=== PATIENT | male | born 1975 | race Two or more races ===

== ENCOUNTER 2019-09-11 14:04 | Emergency (ER) | payer SELFPAY ==
[~2019-09-11] VITALS: Ht 182.9 cm; Wt 79.4 kg
[2019-09-11 14:10] VITALS: BP 132/70
--- NOTE | 2019-09-11 14:31 | NUR ---
ED Nurse Note: Pt. aaox4. ambualtory. Brought in by for medical clearance; c/o blood in urine and feeling dehydrated. denies any pain
[2019-09-11 15:03] LABS: APPEARANCE,URINE CLEAR; BILIRUBIN, URINE NEGATIVE (NEGATIVE); GLUCOSE, URINE (UA) NEGATIVE (NEGATIVE); KETONES,URINE NEGATIVE (NEGATIVE); LEUKOCYTE ESTERASE ,URINE NEGATIVE (NEGATIVE); NITRITE,URINE NEGATIVE (NEGATIVE); PH,URINE 5 (4.5-8.0); PROTEIN,URINE NEGATIVE (NEGATIVE); UROBILINOGEN,URINE 1 MG/DL (0.0-1.0)
[2019-09-11 15:05] LABS: COLOR,URINE YELLOW
--- NOTE | 2019-09-11 15:06 | Emergency Room Report ---
History of Present Illness General Chief Complaint: Medical Clearance Source: Patient Present Illness HPI 44-year-old male presents to the emergency department for medical clearance for incarceration complaining of hematuria x2 days. Patient reports history of kidney stones and is concerned that he may develop 1 while in care home. Patient states that typically hematuria precedes development of stones. He denies pain at this time denies nausea, vomiting, fevers, chills, dysuria, pyuria, urinary frequency or urgency. He denies chest pain, palpitations, headache, neck pain/ stiffness, photophobia, abdominal pain/tenderness, open wounds or bleeding. No other aggravating or relieving factors at this time. Denies dark colored urine or excessive physical activity. Patient is only complaining of hematuria. Allergies: Coded Allergies: No Known Allergies (Unverified , 09/11/19) Patient History Past Medical History: see triage record Past Surgical History: none Pertinent Family History: none Reviewed Nursing Documentation: PMH: Agreed; PSxH: Agreed Nursing Documentation-PMH Past Medical History: No History, Except For Review of Systems All Other Systems: negative except mentioned in HPI Physical Exam Vital Signs Date Time Temp Pulse Resp B/P (MAP) Pulse Ox O2 Delivery O2 Flow Rate FiO2 09/11/19 14:10 97.3 103 18 132/70 (90) 99 Room Air Sp02 EP Interpretation: reviewed, normal General Appearance: no apparent distress, alert, GCS 15, non-toxic Head: normocephalic, atraumatic Eyes: bilateral eye normal inspection, bilateral eye PERRL ENT: hearing grossly normal, normal voice Neck: full range of motion Respiratory: lungs clear, normal breath sounds, no respiratory distress, no wheezing, speaking full sentences Cardiovascular #1: regular rate, rhythm, normal capillary refill Gastrointestinal: normal bowel sounds, non tender, soft, non-distended Genitourinary: normal inspection, no CVA tenderness Musculoskeletal: back normal, normal range of motion, gait/station normal, non- tender Neurologic: alert, motor strength/tone normal, oriented x3, sensory intact, responsive, speech normal Psychiatric: judgement/insight normal Skin: normal inspection Medical Decision Making PA Attestation Dr. Roman Is my supervising Physician whom patient management has been discussed with. Diagnostic Impression: Primary Impression: Hematuria Qualified Codes: R31.9 - Hematuria, unspecified Additional Impression: Medical clearance for incarceration ER Course 44-year-old male presents to the emergency department for medical clearance for incarceration complaining of hematuria x2 days. Patient reports history of kidney stones and is concerned that he may develop 1 while in care home. Patient states that typically hematuria precedes development of stones. He denies pain at this time denies nausea, vomiting, fevers, chills, dysuria, pyuria, urinary frequency or urgency. He denies chest pain, palpitations, headache, neck pain/ stiffness, photophobia, abdominal pain/tenderness, open wounds or bleeding. No other aggravating or relieving factors at this time. Denies dark colored urine or excessive physical activity. Patient is only complaining of hematuria. Ddx considered but are not limited to Head Trauma, TN, ACS, SI/HI, URI, SAH, Fractures, Dislocations, Cellulitis,Tazer barbs, Abrasions, Rhabdo, UTI, Pyelonephritis, Renal Calculi just to name a few. Vital signs: are WNL, pt. is afebrile H&PE are most consistent with: normal limited physical examination. ORDERS: -UA: c/w hematuria without evidence of infection ED INTERVENTIONS: None required at this time. d/w this pt. he is stable for outpatient urology follow up as he is asymptomatic. DISCHARGE: At this time pt. is stable for d/c to law enforcement. Will provide printed patient care instructions, and any necessary prescriptions. Care plan and follow up instructions have been discussed with the patient prior to discharge. Labs Test 09/11/19 14:39 Urine Color Yellow Urine Appearance Clear Urine pH 5 (4.5-8.0) Urine Specific [place] 1.030 (1.005-1.035) Urine Protein Negative (NEGATIVE) Urine Glucose (UA) Negative (NEGATIVE) Urine Ketones Negative (NEGATIVE) Urine Blood 3+ (NEGATIVE) Urine Nitrite Negative (NEGATIVE) Urine Bilirubin Negative (NEGATIVE) Urine Urobilinogen 1 MG/DL (0.0-1.0) Urine Leukocyte Esterase Negative (NEGATIVE) Urine RBC 5-10 /HPF (0 - 0) Urine WBC 0-2 /HPF (0 - 0) Urine Squamous Epithelial Cells None /LPF (NONE/OCC) Urine Bacteria None /HPF (NONE) Last Vital Signs Date Time Temp Pulse Resp B/P (MAP) Pulse Ox O2 Delivery O2 Flow Rate FiO2 09/11/19 14:10 103 18 Room Air 09/11/19 14:10 97.3 132/70 99 Disposition: D/C TO LAW ENFORCEMENT IN [place] Condition: Stable Departure Forms: Halfway Clearance Patient Instructions: Hematuria, Adult Additional Instructions: Take medications as directed. Follow up with a Primary Care Provider in 3-5 days, even if your symptoms have resolved. Return sooner to ED if new symptoms occur, or current symptoms become worse. - Please note that this Emergency Department Report was dictated using [employer] psych sales specialist technology software, occasionally this can lead to erroneous entry secondary to interpretation by the dictation equipment. Sandra Almonte Sep 11, 2019 15:06
--- NOTE | 2019-09-11 15:32 | NUR ---
ER DISCHARGE NOTE: Patient is cleared to be discharged per PA, pt is aox4, on room air, with stable vital signs. pt was given dc instructions, pt was able to verbalize understanding, pt id band removed. pt is able to ambulate with steady gait. pt took all belongings.
[2019-09-11 15:35] VITALS: BP 128/75
== END 2019-09-11 15:35 ==
LOC: EMR 15:32
DX: R31.9 Hematuria, unspecified (principal)
CPT/HCPCS: 81001; 99282